=== PATIENT | female | born 1985 | race Caucasian/White ===

== ENCOUNTER 2019-07-09 02:02 | Observation (INO) ==
[2019-07-09] MEDS ORDERED: Ondansetron 4 MG/2 ML VIAL IVP ONE (02:49)
[2019-07-09] MEDS ORDERED: 0.9 % Sodium Chloride 1,000 ML IVC ONE (02:49)
[2019-07-09 03:32] LABS: Basophils % 0.6 %; Eosinophils # 0.3 K/mcL (0.0-0.6); Eosinophils % 3.8 %; Hematocrit 34.5 % (35.3-44.9); Hemoglobin 11.3 g/dL (11.5-15.4); Immature Granulocytes % 0.4 % (0-4); Lymphocytes # 2.2 K/mcL (0.6-4.6); Lymphocytes % 31.1 %; Mean Corpuscular HGB Conc 32.8 g/dL (31.6-35.5); Mean Corpuscular Hemoglobin 26.6 pg (28.0-33.3); Mean Corpuscular Volume 81.2 fL (83.0-100.0); Mean Platelet Volume 9.3 fL (9.4-12.4); Monocytes # 0.7 K/mcL (0.0-1.3); Monocytes % 9.9 %; Neutrophils # 3.9 K/mcL (1.6-8.9); Platelet Count 306 K/mcL (140-400); Red Blood Count 4.25 M/mcL (3.82-4.97); Red Cell Distribution Width 13.1 % (11.5-14.5); Segmented Neutrophils % 54.2 %; White Blood Count 7.2 K/mcL (4.3-11.1)
[2019-07-09 04:17] LABS: Calcium 9.3 mg/dL (8.6-10.3); Potassium 3.7 mEq/L (3.5-5.1)
[2019-07-09 05:02] LABS: Bilirubin,Urine Negative (Negative); Blood,Urine Moderate (Negative); Clarity,Urine Cloudy (Clear); Glucose,Urine (UA) Normal (Normal); Ketones,Urine Negative (Negative); Leukocyte Esterase,Urine Large (Negative); Nitrite,Urine Negative (Negative); PH,Urine 5.5 pH Units (5.0-8.0); Protein,Urine >=300 mg/dL (Neg-Trace); Specific Gravity,Urine 1.015 (1.010-1.025); Urobilinogen,Urine Normal (Normal)
[2019-07-09 05:09] LABS: Bilirubin,Urine Negative (Negative); Blood,Urine Large (Negative); Clarity,Urine Cloudy (Clear); Glucose,Urine (UA) Normal (Normal); Ketones,Urine Negative (Negative); Leukocyte Esterase,Urine Moderate (Negative); Nitrite,Urine Negative (Negative); PH,Urine 5.5 pH Units (5.0-8.0); Protein,Urine 100 mg/dL (Neg-Trace); Specific Gravity,Urine 1.015 (1.010-1.025); Urobilinogen,Urine Normal (Normal)
[2019-07-09 05:16] LABS: Color,Urine Yellow (Yellow)
[2019-07-09 05:16] LABS: Color,Urine Yellow (Yellow)
[2019-07-09 06:49] LABS: Bacteria,Urine Many per hpf (None-Few)
[2019-07-09 07:03] LABS: Bacteria,Urine Many per hpf (None-Few)
[2019-07-09] MEDS ORDERED: cefTRIAXone 1,000 MG in 0.9 % Sodium Chloride Mini Bag 100 ML IVPB ONE (07:14)
[2019-07-09] MEDS: 0.9 % Sodium Chloride 1,000 ML IVC SCH ×2 (07:26→16:53)
[2019-07-09] MEDS ORDERED: Naloxone 0.4 MG/ML INJ IVP PRN (08:29)
[2019-07-09] MEDS ORDERED: Mag Hydrox/Al Hydrox/Simeth 30 ML UDC PO PRN (08:29)
[2019-07-09] MEDS ORDERED: MOM Conc 10 ML UD.LIQ PO PRN (08:29)
[2019-07-09] MEDS ORDERED: Acetaminophen 325 MG TABLET PO PRN (08:29)
[2019-07-09] MEDS: Ondansetron 4 MG/2 ML VIAL IVP PRN (15:12)
[2019-07-10] MEDS: 0.9 % Sodium Chloride 1,000 ML IVC SCH ×2 (00:12→07:36)
[2019-07-10] MEDS: Ondansetron 4 MG/2 ML VIAL IVP PRN (05:49)
[2019-07-10 05:57] LABS: Basophils % 0.5 %; Eosinophils # 0.2 K/mcL (0.0-0.6); Eosinophils % 3.3 %; Hemoglobin 9.9 g/dL (11.5-15.4); Immature Granulocytes % 0.3 % (0-4); Lymphocytes # 2.9 K/mcL (0.6-4.6); Lymphocytes % 43.5 %; Mean Corpuscular HGB Conc 31.9 g/dL (31.6-35.5); Mean Corpuscular Hemoglobin 26.5 pg (28.0-33.3); Mean Corpuscular Volume 82.9 fL (83.0-100.0); Monocytes # 0.6 K/mcL (0.0-1.3); Monocytes % 8.8 %; Neutrophils # 2.9 K/mcL (1.6-8.9); Platelet Count 269 K/mcL (140-400); Red Blood Count 3.74 M/mcL (3.82-4.97); Segmented Neutrophils % 43.6 %; White Blood Count 6.6 K/mcL (4.3-11.1)
[2019-07-10 06:05] LABS: BUN/Creatinine Ratio 15 (6-26); Blood Urea Nitrogen 14 mg/dL (6-20); Calcium 8.3 mg/dL (8.6-10.3); Carbon Dioxide 30 mEq/L (23-29); Chloride 108 mEq/L (98-107); Glucose 92 mg/dL (70-105); Osmolality,Calculated 296 (280-300); Sodium 143 mEq/L (136-145); eGFR For African Americans > 60 (> 60); eGFR For Non-African Americans > 60 (> 60)
[2019-07-10] MEDS ORDERED: cefTRIAXone 1,000 MG in Water for inj. (sterile) 10 ML IVPB SCH (07:00)
[2019-07-10 07:02] LABS: Anisocytosis 1+ (Not Present); Platelet Estimate Normal (Normal); Reactive Lymphocytes Present (Not Present)
[2019-07-10 10:55] VITALS: BP 125/83
== END 2019-07-10 13:08 | disposition home or self-care (01) ==
LOC: EMEROOPIK 02:02 → INPPIK 02:02 → SUATTDRO 08:51 → INPPIK 09:53
PROVIDERS: ADMIT Internal Medicine; ATTEND Family Medicine